=== PATIENT | female | born 1980 | race American Indian/Alaskan Native ===

== ENCOUNTER 2020-05-13 10:41 | Outpatient (CLI) | payer OTHER ==
[2020-05-13] MEDS ORDERED: LACTATED RINGERS 1,000 ML ONE (11:03)
[2020-05-13] MEDS ORDERED: LACTATED RINGERS 1,000 ML IV ONE (11:28)
[2020-05-13 11:44] VITALS: BP 126/74
--- NOTE | 2020-05-13 13:06 | Ultrasound Report ---
ULTRASOUND BIOPHYSICAL PROFILE ULTRASOUND OB LIMITED INDICATION: well-being. TECHNIQUE: Transabdominal ultrasound imaging. COMPARISON: None FINDINGS: breathing movement = 2 Gross body movement = 2 tone = 2 Qualitative amniotic fluid volume = 2 Total biophysical score = 8/8 Amniotic fluid index is 11.4 cm. Presentation is transverse with head to maternal right. heart rate is 140 beats per minute. Additional findings: Cervical funneling is identified with internal cervical os separation measuring 3.2 cm. IMPRESSION: biophysical profile equals 8/8. Cervical funneling. Signer Name: Abebe Trujillo Jr, MD Signed: 05/13/2020 1:01 PM Workstation Name: [id number]
[2020-05-13 13:49] LABS: Bilirubin,Urine NEG (Negative); Blood,Urine NEG (Negative); Color,Urine Straw (Yellow); Mucus,Urine FEW /HPF; Protein,Urine <15 mg/dL mg/dL (Negative); Urobilinogen,Urine < 2.0 mg/dL (<2.0); WBC,Urine < 1.0 /HPF (0.0-6.0)
== END 2020-05-13 15:00 | disposition home or self-care (01) ==
LOC: TRG 10:41 → APU 10:42 → TRG 15:00
PROVIDERS: ATTEND Obstetrics & Gynecology
DX: O36.8330 Maternal care for abnormalities of the fetal heart rate or rhythm, third trimester, not applicable or unspecified (principal); O09.523 Supervision of elderly multigravida, third trimester; O10.913 Unspecified pre-existing hypertension complicating pregnancy, third trimester; Z3A.35 35 weeks gestation of pregnancy
CPT/HCPCS: 59025; 76815; 76819; 81001; 96360; J7120

== ENCOUNTER 2020-06-25 17:31 | Inpatient (IN) | payer OTHER ==
[2020-06-25] MEDS ORDERED: oxyCODONE /ACETAMINOPHEN 5-325MG TAB PO PRN ×2 (19:33)
[2020-06-25] MEDS ORDERED: hydrALAZINE 20 MG/1 ML INJ IV PRN (19:33)
[2020-06-25] MEDS ORDERED: MAGNESIUM SULFATE 4 GM/100 ML BAG IV ONE (19:33)
[2020-06-25] MEDS ORDERED: IBUPROFEN 800 MG TAB PO PRN (19:33)
[2020-06-25] MEDS ORDERED: DOCUSATE SODIUM 100 MG CAP PO PRN (19:45)
[2020-06-25] MEDS ORDERED: MAGNESIUM SULFATE 40GM/1000ML 40 GM/1,000 ML BAG IV SCH (20:00)
--- NOTE | 2020-06-25 20:25 | History and Physical Report ---
History of Present Illness Date of examination: 06/25/20 ( pre eclampsia) Date of admission: 06/25/20 20:19 Chief complaint: Sever MARTINEZ and upper abdominal pain. History of present illness: Pt is a 39 y.o. s/p rpt on 06/10/2020. She called the office today to state that she had been having upper abdominal pain, underneath her right breast and a severe MARTINEZ that started today. 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 % Sun Exposure: rarely Family History Risk Factors: Family History of MD in females < 65 years old: no Family History of MD in males < 55 years old: no Dietary Counseling: pn yes Past Medical History: Reviewed history from 03/16/2019 and no changes required: htn - on hydrochlorothazide, [facility] Abnormal Pap Smear - 2016, Normal in 2018 Past Surgical History: Reviewed history from 11/27/2010 and no changes required: negative Past Medical History Anesthesia Complications: negative Anemia: negative Autoimmune Disorder: negative Bleeding Disorder: negative Blood Transfusions: negative Breast Disease: negative Diabetes: negative Heart Disease: negative Hypertension: positive, On Hydroclorthyazide Hepatitis/Liver Disease: negative Kidney Disease/UTI: negative Neurologic/Epilepsy/Migraines: negative Phlebitis/Varicosities: negative Psychiatric: negative Pulmonary Disease/Asthma: negative Thyroid Disease: negative Hospitalizations: negative Surgery (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 of genital herpes: no Partner hx. of genital herpes: no Rash, Viral, or Febrile illness since last LMP? 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: abnormal PAP smear (In 2018, reported as normal in 2019.) Family/Genetic History: none Social history: - Obstetrical History : 8 Para: 3 Hx # Term Pregnancies: 3 Number of Pregnancies: 0 Spontaneous Abortions: 2 Induced : 2 Number of Living Children: 3 Medications and Allergies Allergies Allergy/AdvReac Type Severity Reaction Status Date / Time No Known Allergies Allergy Verified 04/19/20 14:54 Home Medications Medication Instructions Recorded Confirmed Last Taken Type Aspirin [Adult Aspirin] 81 mg PO DAILY 05/13/20 05/13/20 05/12/20 20:00 History Vit-Fe Fumar-FA [ 1 tab PO QDAY 05/13/20 05/13/20 05/13/20 08:00 History Vitamin] Docusate Sodium [Colace] 100 mg PO BID PRN #60 capsule 06/10/20 Unknown Rx Ferrous Sulfate [Feosol 325 MG tab] 325 mg PO QDAY #60 tablet 06/10/20 Unknown Rx Ibuprofen [Motrin 800 MG tab] 800 mg PO Q8HR PRN #30 tablet 06/10/20 Unknown Rx Lidocain2.5%/Prilocai2.5% [Emla] 2 gm TP ONCE #1 tube 06/10/20 Unknown Rx oxyCODONE /ACETAMINOPHEN [Percocet 1 tab PO Q4HR #30 tab 06/10/20 Unknown Rx 5/325] Active Meds: Active Medications Acetaminophen (Tylenol) 1,000 mg PO Q6H PRN PRN Reason: HEADACHE Docusate Sodium (Colace) 100 mg PO BID PRN PRN Reason: Constipation Ferrous Sulfate (Feosol) 325 mg PO QDAY OSVALDO Hydralazine HCl (Apresoline) 10 mg IV ONCE PRN PRN Reason: Hypertension Lactated Ringer's (Lactated Ringers) 1,000 mls @ 125 mls/hr IV DIRECT OSVALDO Magnesium Sulfate (Magnesium Sulfate 40gm/1000ml) 40 gm in 1,000 mls @ 50 mls/hr IV DIRECT OSVALDO Ibuprofen (Ibuprofen) 800 mg PO ONCE PRN PRN Reason: Mild Pain unrelieved by APAP Oxycodone/Acetaminophen (Percocet 5/325) 2 tab PO Q6H PRN PRN Reason: severe pain Oxycodone/Acetaminophen (Percocet 5/325) 1 tab PO Q6H PRN PRN Reason: Pain, Moderate (4-6) - Vital Signs Vital signs: Vital Signs Temp Pulse Resp BP Pulse Ox 98.9 F 65 18 156/99 100 06/25/20 17:54 06/25/20 17:54 06/25/20 17:54 06/25/20 17:54 06/25/20 17:54 Temp Pulse Resp BP Pulse Ox 98.9 F 65 18 156/99 100 06/25/20 17:54 06/25/20 17:54 06/25/20 17:54 06/25/20 17:54 06/25/20 17:54 - Physical Exam Breasts: Positive: , engorged, other (Pt states that she needs to pump. ) Cardiovascular: Regular rate, Normal S1, Normal S2 Lungs: Positive: Clear to auscultation Abdomen: Positive: normal appearance, soft, normal bowel sounds Genitourinary (Female): Positive: normal external genitalia, normal perenium Vulva: both: normal Vagina: Positive: normal moisture. Negative: discharge Cervix: Negative: lesion, discharge Uterus: Positive: normal size, normal contour Adnexa: both: normal Anus/Rectum: Positive: normal perianal skin, heme negative. Negative: rectal mass, hemorrhoids Extremities: Positive: edema (Trace) Deep Tendon Reflex Grade: Normal but brisk +3 Results Result Diagrams: 06/25/20 19:58 06/25/20 19:58 All other labs normal. PRE E CLAMPSIA LABS DRAWN ON ADMISSION Assessment and Plan A: 39 y.o. s/p rpt on 06/10, readmitted for pre eclampsia during the period. P: Admit to labor and delivery for magnesium infusion. Magnesium infusion ordered. Strict I&O's. Kelley catheter insertion. Monitor blood pressures. Pre Eclampsia labs to be drawn. - Patient Problems (1) Pre-eclampsia in period Onset Date: ~06/25/20 Current Visit: Yes Status: Acute Plan to address problem: Magnesium infusion to be initiated Monitor blood pressures. Pre Eclampsia labs drawn on admission. Strict I&O's. Kelley Catheter insertion. .
[2020-06-25 20:31] LABS: Hematocrit 36.1 % (30.3-42.9); Hemoglobin 11.6 gm/dl (10.1-14.3); Mean Corpuscular HGB Conc 32 % (30-34); Mean Corpuscular Volume 85 fl (79-97); Platelet Count 317 K/mm3 (140-440); Red Blood Count 4.26 M/mm3 (3.65-5.03); Red Cell Distribution Width 16.8 % (13.2-15.2)
[2020-06-25 20:47] LABS: Alanine Aminotransferase 13 units/L (7-56); Uric Acid 7.1 mg/dL (3.5-7.6)
[2020-06-25] MEDS: LACTATED RINGERS 1,000 ML IV SCH (21:20)
[2020-06-25 22:06] LABS: Bacteria,Urine 1+ /HPF (Negative); Bilirubin,Urine NEG (Negative); Blood,Urine LG (Negative); Color,Urine Yellow (Yellow); Mucus,Urine FEW /HPF; Protein,Urine <15 mg/dL mg/dL (Negative); Urobilinogen,Urine < 2.0 mg/dL (<2.0)
[2020-06-25 22:13] LABS: Amphetamine Screen,Urine PRESUMPTIVE NEGATIVE; Benzodiazepines Screen,Urine PRESUMPTIVE NEGATIVE; Cannabinoid Screen,Urine PRESUMPTIVE NEGATIVE; Cocaine Screen,Urine PRESUMPTIVE NEGATIVE; Methadone Screen,Urine PRESUMPTIVE NEGATIVE; Opiate Screen,Urine PRESUMPTIVE NEGATIVE
[2020-06-26] MEDS: ACETAMINOPHEN 500 MG TAB PO PRN ×3 (03:18→16:52)
--- NOTE | 2020-06-26 06:40 | Progress Note ---
Assessment and Plan pt c/o MARTINEZ Tylenol given @ 0300 States breast are very hard and sore Will assist to pump. BP 130-114/70-60 Encouraged pt to decrease light exposure, turn off TV, pump then try to rest. Labetalol 200mg to start @ 1000. P: cont POC, diet, ass isted AM care. - Patient Problems (1) Pre-eclampsia in period Onset Date: ~06/25/20 Current Visit: Yes Status: Acute Plan to address problem: Continue MGSO4 X 24 hours; Start Labetalol 200mg po BID Subjective Date of service: 06/26/20 (pt c/o MARTINEZ and need to pump) Principal diagnosis: S/P section 06/10/20 Readmit PreE MGSO4 X 24hrs Objective - Constitutional Vitals: Vital Signs - 12hr 06/25/20 06/25/20 06/25/20 21:22 21:24 21:26 Temperature 98.7 F Pulse Rate 76 60 64 Respiratory 22 Rate Blood Pressure 155/86 Blood Pressure 155/86 [Left] O2 Sat by Pulse 99 86 Oximetry 06/25/20 06/25/20 06/25/20 21:29 21:34 21:36 Temperature Pulse Rate 54 L 57 L 58 L Respiratory Rate Blood Pressure Blood Pressure [Left] O2 Sat by Pulse 100 99 94 Oximetry 06/25/20 06/25/20 06/25/20 21:39 21:41 21:44 Temperature Pulse Rate 57 L 54 L 68 Respiratory Rate Blood Pressure 152/99 Blood Pressure [Left] O2 Sat by Pulse 100 100 Oximetry 06/25/20 06/25/20 06/25/20 21:49 21:54 21:56 Temperature Pulse Rate 61 59 L 59 L Respiratory Rate Blood Pressure 140/79 Blood Pressure [Left] O2 Sat by Pulse 100 99 Oximetry 06/25/20 06/25/20 06/25/20 21:59 22:04 22:09 Temperature Pulse Rate 81 75 74 Respiratory Rate Blood Pressure Blood Pressure [Left] O2 Sat by Pulse 100 99 99 Oximetry 06/25/20 06/25/20 06/25/20 22:14 22:19 22:24 Temperature Pulse Rate 71 70 75 Respiratory Rate Blood Pressure Blood Pressure [Left] O2 Sat by Pulse 100 100 94 Oximetry 06/25/20 06/25/20 06/25/20 22:29 22:32 22:34 Temperature Pulse Rate 66 67 76 Respiratory Rate Blood Pressure 136/81 Blood Pressure [Left] O2 Sat by Pulse 100 98 Oximetry 06/25/20 06/25/20 06/25/20 22:36 22:39 22:41 Temperature Pulse Rate 61 58 L 58 L Respiratory Rate Blood Pressure Blood Pressure [Left] O2 Sat by Pulse 93 98 94 Oximetry 06/25/20 06/25/20 06/25/20 22:44 22:49 22:50 Temperature Pulse Rate 80 64 67 Respiratory Rate Blood Pressure Blood Pressure [Left] O2 Sat by Pulse 99 99 94 Oximetry 06/25/20 06/25/20 06/25/20 22:54 22:57 22:59 Temperature Pulse Rate 73 75 77 Respiratory Rate Blood Pressure Blood Pressure [Left] O2 Sat by Pulse 100 85 88 Oximetry 06/25/20 06/25/20 06/25/20 23:02 23:04 23:05 Temperature Pulse Rate 59 L 71 70 Respiratory Rate Blood Pressure 141/83 Blood Pressure [Left] O2 Sat by Pulse 99 91 Oximetry 06/25/20 06/25/20 06/25/20 23:09 23:14 23:19 Temperature Pulse Rate 80 63 63 Respiratory Rate Blood Pressure Blood Pressure [Left] O2 Sat by Pulse 99 100 99 Oximetry 06/25/20 06/25/20 06/25/20 23:24 23:27 23:29 Temperature Pulse Rate 76 73 70 Respiratory Rate Blood Pressure Blood Pressure [Left] O2 Sat by Pulse 98 89 99 Oximetry 06/25/20 06/25/20 06/25/20 23:32 23:34 23:39 Temperature Pulse Rate 61 60 60 Respiratory Rate Blood Pressure 146/87 Blood Pressure [Left] O2 Sat by Pulse 99 99 Oximetry 06/25/20 06/25/20 06/25/20 23:44 23:49 23:54 Temperature Pulse Rate 58 L 63 65 Respiratory Rate Blood Pressure Blood Pressure [Left] O2 Sat by Pulse 100 99 99 Oximetry 06/25/20 06/26/20 06/26/20 23:59 00:02 00:04 Temperature Pulse Rate 68 73 65 Respiratory Rate Blood Pressure 124/75 Blood Pressure [Left] O2 Sat by Pulse 97 98 Oximetry 06/26/20 06/26/20 06/26/20 00:09 00:14 00:19 Temperature Pulse Rate 68 62 64 Respiratory Rate Blood Pressure Blood Pressure [Left] O2 Sat by Pulse 97 100 99 Oximetry 06/26/20 06/26/20 06/26/20 00:24 00:29 00:32 Temperature Pulse Rate 68 69 78 Respiratory Rate Blood Pressure 142/70 Blood Pressure [Left] O2 Sat by Pulse 97 98 Oximetry 06/26/20 06/26/20 06/26/20 00:34 00:39 00:44 Temperature Pulse Rate 66 65 64 Respiratory Rate Blood Pressure Blood Pressure [Left] O2 Sat by Pulse 99 99 98 Oximetry 06/26/20 06/26/20 06/26/20 00:49 00:54 00:59 Temperature Pulse Rate 73 63 71 Respiratory Rate Blood Pressure Blood Pressure [Left] O2 Sat by Pulse 98 99 99 Oximetry 06/26/20 06/26/20 06/26/20 01:02 01:04 01:09 Temperature Pulse Rate 65 59 L 65 Respiratory Rate Blood Pressure 134/75 Blood Pressure [Left] O2 Sat by Pulse 100 99 Oximetry 06/26/20 06/26/20 06/26/20 01:14 01:19 01:24 Temperature Pulse Rate 69 78 63 Respiratory Rate Blood Pressure Blood Pressure [Left] O2 Sat by Pulse 99 98 100 Oximetry 06/26/20 06/26/20 06/26/20 01:29 01:32 01:34 Temperature Pulse Rate 69 67 71 Respiratory Rate Blood Pressure 130/67 Blood Pressure [Left] O2 Sat by Pulse 99 99 Oximetry 06/26/20 06/26/20 06/26/20 01:39 01:44 01:49 Temperature Pulse Rate 73 68 72 Respiratory Rate Blood Pressure Blood Pressure [Left] O2 Sat by Pulse 100 99 100 Oximetry 06/26/20 06/26/20 06/26/20 01:54 01:59 02:04 Temperature Pulse Rate 74 70 69 Respiratory Rate Blood Pressure Blood Pressure [Left] O2 Sat by Pulse 99 100 100 Oximetry 06/26/20 06/26/20 06/26/20 02:09 02:14 02:19 Temperature Pulse Rate 72 65 70 Respiratory Rate Blood Pressure Blood Pressure [Left] O2 Sat by Pulse 99 100 99 Oximetry 06/26/20 06/26/20 06/26/20 02:24 02:28 02:29 Temperature Pulse Rate 78 76 75 Respiratory Rate Blood Pressure Blood Pressure [Left] O2 Sat by Pulse 99 92 97 Oximetry 06/26/20 06/26/20 06/26/20 02:32 02:34 02:39 Temperature Pulse Rate 69 73 67 Respiratory Rate Blood Pressure 128/83 Blood Pressure [Left] O2 Sat by Pulse 100 100 Oximetry 06/26/20 06/26/20 06/26/20 02:44 02:49 02:54 Temperature Pulse Rate 61 66 71 Respiratory Rate Blood Pressure Blood Pressure [Left] O2 Sat by Pulse 100 100 100 Oximetry 06/26/20 06/26/20 06/26/20 02:59 03:04 03:09 Temperature Pulse Rate 76 74 71 Respiratory Rate Blood Pressure Blood Pressure [Left] O2 Sat by Pulse 99 100 98 Oximetry 06/26/20 06/26/20 06/26/20 03:14 03:15 03:19 Temperature Pulse Rate 67 66 70 Respiratory Rate Blood Pressure 139/84 Blood Pressure [Left] O2 Sat by Pulse 100 99 Oximetry 06/26/20 06/26/20 06/26/20 03:24 03:29 03:32 Temperature Pulse Rate 75 67 66 Respiratory Rate Blood Pressure 145/89 Blood Pressure [Left] O2 Sat by Pulse 98 99 Oximetry 06/26/20 06/26/20 06/26/20 03:34 03:39 03:44 Temperature Pulse Rate 60 64 69 Respiratory Rate Blood Pressure Blood Pressure [Left] O2 Sat by Pulse 100 99 98 Oximetry 06/26/20 06/26/20 06/26/20 03:49 03:54 03:59 Temperature Pulse Rate 68 71 57 L Respiratory Rate Blood Pressure Blood Pressure [Left] O2 Sat by Pulse 98 97 100 Oximetry 06/26/20 06/26/20 06/26/20 04:02 04:04 04:09 Temperature Pulse Rate 62 65 67 Respiratory Rate Blood Pressure 129/76 Blood Pressure [Left] O2 Sat by Pulse 94 97 97 Oximetry 06/26/20 06/26/20 06/26/20 04:14 04:19 04:24 Temperature Pulse Rate 67 69 69 Respiratory Rate Blood Pressure Blood Pressure [Left] O2 Sat by Pulse 97 97 97 Oximetry 06/26/20 06/26/20 06/26/20 04:29 04:32 04:34 Temperature Pulse Rate 73 64 67 Respiratory Rate Blood Pressure 120/73 Blood Pressure [Left] O2 Sat by Pulse 97 97 Oximetry 06/26/20 06/26/20 06/26/20 04:39 04:44 04:49 Temperature Pulse Rate 72 68 74 Respiratory Rate Blood Pressure Blood Pressure [Left] O2 Sat by Pulse 96 98 96 Oximetry 06/26/20 06/26/20 06/26/20 04:50 04:54 04:59 Temperature Pulse Rate 78 73 73 Respiratory Rate Blood Pressure Blood Pressure [Left] O2 Sat by Pulse 94 97 98 Oximetry 06/26/20 06/26/20 06/26/20 05:02 05:04 05:09 Temperature Pulse Rate 75 65 65 Respiratory Rate Blood Pressure 132/88 Blood Pressure [Left] O2 Sat by Pulse 98 98 Oximetry 06/26/20 06/26/20 06/26/20 05:14 05:19 05:24 Temperature Pulse Rate 62 66 65 Respiratory Rate Blood Pressure Blood Pressure [Left] O2 Sat by Pulse 99 98 98 Oximetry 06/26/20 06/26/20 06/26/20 05:29 05:32 05:34 Temperature Pulse Rate 66 64 55 L Respiratory Rate Blood Pressure 114/63 Blood Pressure [Left] O2 Sat by Pulse 98 100 Oximetry 06/26/20 06/26/20 06/26/20 05:39 05:44 05:49 Temperature Pulse Rate 62 64 67 Respiratory Rate Blood Pressure Blood Pressure [Left] O2 Sat by Pulse 98 98 98 Oximetry 06/26/20 06/26/20 06/26/20 05:54 05:59 06:02 Temperature Pulse Rate 66 61 64 Respiratory Rate Blood Pressure 122/69 Blood Pressure [Left] O2 Sat by Pulse 99 99 Oximetry 06/26/20 06/26/20 06/26/20 06:04 06:09 06:14 Temperature Pulse Rate 63 64 73 Respiratory Rate Blood Pressure Blood Pressure [Left] O2 Sat by Pulse 98 97 99 Oximetry 06/26/20 06/26/20 06/26/20 06:19 06:24 06:29 Temperature Pulse Rate 71 74 70 Respiratory Rate Blood Pressure Blood Pressure [Left] O2 Sat by Pulse 97 98 97 Oximetry 06/26/20 06:32 Temperature Pulse Rate 74 Respiratory Rate Blood Pressure 135/86 Blood Pressure [Left] O2 Sat by Pulse Oximetry General appearance: Present: mild distress, well-nourished, other (MARTINEZ; encouraged breasts) - EENT Eyes: PERRL, EOM intact ENT: hearing intact, clear oral mucosa Ears: bilateral: normal - Neck Neck: supple, normal ROM - Respiratory Respiratory effort: normal Respiratory: bilateral: CTA - Breasts Breasts: - Cardiovascular Rhythm: regular Heart Sounds: Present: S1 & S2. Absent: gallop, rub Extremities: pulses intact, No edema, normal color, Full ROM - Gastrointestinal General gastrointestinal: Present: soft, non-tender, non-distended, normal bowel sounds - Genitourinary Female genitourinary: normal - Integumentary Integumentary: clear, warm, dry - Musculoskeletal Musculoskeletal: 1, strength equal bilaterally - Neurologic Neurologic: moves all extremities - Psychiatric Psychiatric: memory intact, appropriate mood/affect, intact judgment & insight - Labs CBC & Chem 7: 06/25/20 19:58 06/25/20 19:58 Labs: Abnormal lab results 06/25/20 06/25/20 06/25/20 Range/Units 19:58 19:58 21:22 MCH 27 L (28-32) pg RDW 16.8 H (13.2-15.2) % Magnesium (1.7-2.3) mg/dL Lactate Dehydrogenase 260 H (91-180) units/L Urine WBC (Auto) 13.0 H (0.0-6.0) /HPF 06/26/20 Range/Units 00:12 MCH (28-32) pg RDW (13.2-15.2) % Magnesium 3.80 H (1.7-2.3) mg/dL Lactate Dehydrogenase (91-180) units/L Urine WBC (Auto) (0.0-6.0) /HPF Medications & Allergies - Medications Allergies/Adverse Reactions: Allergies No Known Allergies Allergy (Verified 04/19/20 14:54) Home Medications: Home Medications Medication Instructions Recorded Confirmed Last Taken Type Vit-Fe Fumar-FA [ 1 tab PO QDAY 05/13/20 05/13/20 05/13/20 08:00 History Vitamin] Docusate Sodium [Colace] 100 mg PO BID PRN #60 capsule 06/10/20 Unknown Rx Ferrous Sulfate [Feosol 325 MG tab] 325 mg PO QDAY #60 tablet 06/10/20 Unknown Rx Active Medications: Generic Name Dose Route Start Last Admin Trade Name Freq PRN Reason Stop Dose Admin Acetaminophen 1,000 mg 06/25/20 19:33 06/26/20 03:18 Tylenol PO 1,000 mg Q6H PRN Administration HEADACHE Docusate Sodium 100 mg 06/25/20 19:45 Colace PO BID PRN Constipation Ferrous Sulfate 325 mg 06/26/20 10:00 Feosol PO QDAY OSVALDO Hydralazine HCl 10 mg 06/25/20 19:33 Apresoline IV ONCE PRN Hypertension Lactated Ringer's 1,000 mls @ 125 mls/hr 06/25/20 20:00 06/25/20 21:20 Lactated Ringers IV 75 mls/hr DIRECT OSVALDO Administration Magnesium Sulfate 40 gm in 1,000 mls @ 50 mls/hr 06/25/20 20:00 06/25/20 22:00 Magnesium Sulfate 40gm/1000ml IV 2 gm/hr DIRECT OSVALDO 50 mls/hr Administration 2 GM/HR Ibuprofen 800 mg 06/25/20 19:33 Ibuprofen PO ONCE PRN Mild Pain unrelieved by APAP Labetalol HCl 200 mg 06/26/20 10:00 Labetalol PO BID OSVALDO Oxycodone/Acetaminophen 2 tab 06/25/20 19:33 Percocet 5/325 PO Q6H PRN severe pain Oxycodone/Acetaminophen 1 tab 06/25/20 19:33 Percocet 5/325 PO Q6H PRN Pain, Moderate (4-6) HEART Score - HEART Score EKG: Normal
[2020-06-26] MEDS ORDERED: FERROUS SULFATE 325 MG TAB PO SCH (10:00)
[2020-06-26] MEDS: LACTATED RINGERS 1,000 ML IV SCH (11:04)
--- NOTE | 2020-06-26 20:14 | Event Note ---
Date: 06/26/20 Pt advised of plan of care to d/c magnesium and then monitor blood pressures. Pt advised that we will need to monitor for adjustments in bp meds. Pt expressed understanding and questions were addressed and answered.
--- NOTE | 2020-06-27 08:39 | Discharge Summary ---
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 AF. H/H . Hospital course: 39 y.o. female readmitted for pre-E s/p repeat C/S on 06/10/20. MagSO4 given x 24hrs and Labetalol 200 mg BID started. BP WNL. Denies MARTINEZ, blurry vision, chest pain, RUQ pain, and swelling. BTL done with C/S for permanent contraception. Pumping currently for . P: F/U on Wednesday in office for BP check. Warning s/s discussed. Condition at discharge: Good Disposition: DC-01 TO HOME OR SELFCARE - Discharge Diagnoses (1) Pre-eclampsia in period Status: Acute Comment: Pt resting in bed quietly. No visible s/s of distress. VSSAF. BP ranging 110-140/60-80. Ambulating and voiding without difficulty. Incision clean, dry, and intact. Breastpumping succesfully. P: D/C home today, continue Labetalol 200 mg BID, f/u in office on Wednesday for BP check. Plan - Discharge Medications Prescriptions: labetaloL [Labetalol 200mg TAB] 200 mg PO BID #60 tablet - Provider Discharge Summary Additional instructions: [] Smoking cessation referral if applicable(refer to patient education folder for contact #) [] Refer to [facility] Booklet Call your doctor immediately for: * Fever > 100.5 * Heavy vaginal bleeding ( >1 pad per hour) * Severe persistent headache * Shortness of breath * Reddened, hot, painful area to leg or breast * Drainage or odor from incision. * Keep incision clean and dry at all times and follow doctor's instructions regarding bathing/showering - Follow up plan Follow up: PRIMARY CARE, [Primary Care Provider] - 7 Days
[2020-06-27 09:08] VITALS: BP 106/70
== END 2020-06-27 08:50 | disposition home or self-care (01) | DRG 776 ==
LOC: ED 17:31 → LD 20:19 → OB 06-26 21:15
PROVIDERS: ADMIT Obstetrics & Gynecology; ATTEND Obstetrics & Gynecology
DX: O14.95 Unspecified pre-eclampsia, complicating the puerperium (principal); Z87.891 Personal history of nicotine dependence; Z20.828 Contact with and (suspected) exposure to other viral communicable diseases
CPT/HCPCS: 36415; 80307; 81001; 82565; 83615; 83735; 84450; 84460; 84550; 85027; 87086; G0378; J3475; J7120; U0003-CS